=== PATIENT | male | born 1950 | race Caucasian/White ===

== ENCOUNTER → 2022-06-12 | Outpatient (CLI) | payer MEDICARE, OTHER ==
--- NOTE | 2022-06-12 11:54 | DIREP ---
PROCEDURE:XRAY UGI TRACT W/O KUB COMPARISON:None. INDICATIONS:CHOKINH CAUSED BY FOOD IN LARYNX, DIFFICULTY SWALLOWING FOOD/PILLS TECHNIQUE:The patient swallowed barium and effervescent material under fluoroscopic observation of the esophagus, stomach, and proximal small bowel. Multiple spot and overhead films were obtained. FINDINGS: ESOPHAGUS:There is no stricture. There is a moderate-sized hiatal hernia with moderate amount of reflux identified. STOMACH:Normally distensible and free of filling defects. DUODENUM:Normal. No evidence of ulcer disease. OTHER:Negative. FLUORO TIME: 2.7 minutes NUMBER OF IMAGES: 17 CONCLUSION:Moderate-sized hiatal hernia with moderate amount of reflux. Dictated by: Orlando Canela M.D. on 06/12/2022 at 11:42 AM
== END | disposition home or self-care (01) ==
LOC: RAD 09:55
PROVIDERS: ATTEND Family Medicine
DX: K44.9 Diaphragmatic hernia without obstruction or gangrene (principal); R13.10 Dysphagia, unspecified
CPT/HCPCS: 74246